=== PATIENT | female | born 1950 | race Caucasian/White ===

== ENCOUNTER 2016-11-26 11:06 | Emergency (ER) | payer BC ==
[2016-11-26 11:15] VITALS: BMI 25.6
[2016-11-26 11:25] VITALS: TEMP 98.2
[2016-11-26] MEDS ORDERED: Promethazine DM 6.25 mg-15 mg/5 ml Syrup PO STA (11:36)
[2016-11-26] MEDS ORDERED: Albuterol-Ipratrop 3 mg / 0.5 (3 ml) UD IH STA (11:36)
[2016-11-26] MEDS ORDERED: Albuterol-Ipratrop 3 mg / 0.5 (3 ml) UD ONE (11:42)
[2016-11-26] MEDS ORDERED: Promethazine DM 6.25 mg-15 mg/5 ml Syrup ONE (11:42)
--- NOTE | 2016-11-26 12:04 | C.PDOC ---
History Of Present Illness Patient is a 66 y/o female that presents to the ED for evaluation of cough associated with white sputum and shortness of breath for the past 5 days. Pt states that her symptoms were worse this morning which prompted her to visit ED. Notes being seen by PMD yesterday, and was prescribed antibiotics which the pt has not filled yet. Otherwise, denies any fever, chills, chest pain, nausea, vomiting, or any other associated symptoms at this time. Time Seen by Provider: 11/26/16 11:19 Chief Complaint (Nursing): Cough, Cold, Congestion History Per: Patient History/Exam Limitations: no limitations Onset/Duration Of Symptoms: Days (5) Current Symptoms Are (Timing): Still Present Severity: None Pain Scale Rating Of: 0 Associated Symptoms: denies: Fever, Chills, Sweating, Chest Pain, Bloody Cough, Heart Racing, Leg/Calf Pain, Ankle/Leg Swelling, Dizziness, Light-headedness, Anxiety, Tingling In Hands Or Face, Musle Spasms In Hands Or Feet Reports Recently: Treated By A Physician Recent travel outside of the [place]: No Additional History Per: Patient Past Medical History Reviewed: Historical Data, Nursing Documentation, Vital Signs Vital Signs: Last Vital Signs Temp 98.2 F 11/26/16 12:56 Pulse 78 11/26/16 12:56 Resp 16 11/26/16 12:56 BP 142/70 11/26/16 12:56 Pulse Ox 97 11/26/16 12:56 - Medical History PMH: HTN Surgical History: Cholecystectomy Family History: States: No Known Family Hx - Social History Hx Alcohol Use: No Hx Substance Use: No - Immunization History Hx Tetanus Toxoid Vaccination: No Hx Influenza Vaccination: No Hx Pneumococcal Vaccination: No Review Of Systems Except As Marked, All Systems Reviewed And Found Negative. Constitutional: Negative for: Fever, Chills Cardiovascular: Negative for: Chest Pain, Palpitations, Light Headedness Respiratory: Positive for: Cough, Shortness of Breath, Sputum (white). Negative for: Hemoptysis, Wheezing Neurological: Negative for: Dizziness Physical Exam - Physical Exam Appears: Non-toxic, No Acute Distress, Other (hoarse voice) Skin: Normal Color, Warm, Dry Head: Atraumatic, Normacephalic Eye(s): bilateral: Normal Inspection, EOMI Neck: Normal ROM, Supple Chest: Symmetrical, No Tenderness Cardiovascular: Rhythm Regular, No Murmur Respiratory: Normal Breath Sounds, No Accessory Muscle Use, No Rales, No Rhonchi , No Wheezing Gastrointestinal/Abdominal: Soft, No Tenderness Extremity: Normal ROM Neurological/Psych: Oriented x3, Normal Speech, Normal Cognition ED Course And Treatment ECG: Interpreted By Me, Viewed By Me ECG Rhythm: Sinus Rhythm ECG Interpretation: No Acute Changes Interpretation Of ECG: Normal axis. No STEMI. Rate From EC (bpm) O2 Sat by Pulse Oximetry: 95 (on RA) Pulse Ox Interpretation: Normal Progress Note: EKG, CXR ordered and reviewed. Pt was given Albuterol treatment, and Promethazine. Medical Decision Making Medical Decision Making: CXR FINDINGS: LUNGS: Hyperinflation, manifestations of COPD. No active pulmonary disease. PLEURA: No significant pleural effusion identified. No pneumothorax apparent. CARDIOVASCULAR: Normal. OSSEOUS STRUCTURES: No significant abnormalities. VISUALIZED UPPER ABDOMEN: Normal. OTHER FINDINGS: None. IMPRESSION: No active disease. 12:43 On reassessment, patient is resting comfortably, no acute distress. Patient reports feeling better, and notes improvement of symptoms. Pt feels comfortable being discharged home. Patient already has prescription for Azithromycin from PCP. Patient is advised to follow up with PCP, and was instructed to return to ED for any worsening of symptoms. Disposition - Disposition Referrals: Annie Jimenez MD [Medical Doctor] - Disposition: HOME/ ROUTINE Disposition Time: 12:40 Condition: GOOD Additional Instructions: Please follow up with your doctor. Return to the ER for any worsening symptoms or for any other concerns. Prescriptions: Albuterol HFA [Ventolin HFA 90 mcg/actuation (8 g)] 1 - 2 puff IH Q6H PRN #1 inhaler PRN Reason: Wheezing Instructions: Acute Bronchitis (ED) Forms: Gen Discharge Inst Bel[place]ian Print Language: [place] - Clinical Impression Clinical Impression: Bronchitis - Scribe Statement The provider has reviewed the documentation as recorded by the Jacinto Calix Provider Attestation: All medical record entries made by the Dyanaibdede were at my direction and personally dictated by me. I have reviewed the chart and agree that the record accurately reflects my personal performance of the history, physical exam, medical decision making, and the department course for this patient. I have also personally directed, reviewed, and agree with the discharge instructions and disposition.
--- NOTE | 2016-11-26 12:31 | RAD ---
HISTORY: Cough, shortness of breath. COMPARISON: No prior. TECHNIQUE: Chest PA and lateral FINDINGS: LUNGS: Hyperinflation, manifestations of COPD. No active pulmonary disease. PLEURA: No significant pleural effusion identified. No pneumothorax apparent. CARDIOVASCULAR: Normal. OSSEOUS STRUCTURES: No significant abnormalities. VISUALIZED UPPER ABDOMEN: Normal. OTHER FINDINGS: None. IMPRESSION: No active disease.
[2016-11-26 12:56] VITALS: BP 142/70; PULSE 78; RESP 16
[2016-11-26 13:39] VITALS: O2SAT 95
--- NOTE | 2016-11-29 12:17 | CARD ---
APPROVED REPORT EKG Measurement Heart [id number] <Conclusion> Normal sinus rhythm Septal infarct, age undetermined Abnormal ECG
== END 2016-11-26 12:56 | disposition home or self-care (01) ==
LOC: C.ER 11:06
DX: J40 Bronchitis, not specified as acute or chronic (principal)